=== PATIENT | male | born 1985 | race Two or more races ===

== ENCOUNTER 2016-03-26 09:05 | Emergency (ER) | payer SELFPAY ==
--- NOTE | 2016-03-26 09:54 | RAD ---
HAND-RIGHT 3 VIEWS HISTORY: Injury 2 days ago to the fifth metacarpal. COMPARISONS: 12/22/2005. FINDINGS: 3 views of the right hand were performed demonstrating chronic healed deformities of the mid the right fourth and fifth metacarpals. There is evidence of a dorsal plate fracture involving the proximal aspect of the distal phalanx of the fifth ray, best seen on the lateral projection. The alignment is appropriate. The joint spaces are well-maintained. No focal soft tissue abnormalities are seen. IMPRESSION: 1. An acute intra-articular dorsal plate fracture involving the proximal aspect of the distal phalanx of the right fifth ray. 2. Chronic healed fracture deformities of the mid right fourth and fifth metacarpals.
== END 2016-03-26 10:16 | disposition home or self-care (01) ==
LOC: ED 09:05
DX: S62.636A Displaced fracture of distal phalanx of right little finger, initial encounter for closed fracture (principal); X58.XXXA Exposure to other specified factors, initial encounter; Y92.9 Unspecified place or not applicable

== ENCOUNTER 2016-05-15 14:30 | Emergency (ER) | payer SELFPAY ==
[2016-05-15] MEDS ORDERED: ALBUTEROL/IPRATROPIUM 2.5/0.5 MG 3 ML/EACH DOSE ONE (14:59)
--- NOTE | 2016-05-15 15:57 | RAD ---
Exam: Two-view chest COMPARISON: 09/22/2014 INDICATION: Shortness of breath for one week. Findings: PA and lateral views of the chest were obtained. Cardiac silhouette is within normal limits and stable. Lungs are well-inflated. There is no focal airspace disease or pleural effusion. Bones of the chest wall within normal limits. IMPRESSION: Negative two-view chest
== END 2016-05-15 16:28 | disposition home or self-care (01) ==
LOC: ED 14:30
DX: J06.9 Acute upper respiratory infection, unspecified (principal); R06.2 Wheezing; E11.9 Type 2 diabetes mellitus without complications